=== PATIENT | female | born 1990 | race Two or more races ===

== ENCOUNTER 2017-12-23 12:29 | Outpatient (CLI) | payer OTHER | END 2017-12-23 12:34 | disposition home or self-care (01) | LOC: SONOGRAMA 12:29 | DX: O00.101 Right tubal pregnancy without intrauterine pregnancy (principal) ==

== ENCOUNTER 2018-08-08 14:25 | Inpatient (IN) | payer OTHER ==
[~2018-08-08] VITALS: Ht 160 cm; Wt 72.6 kg
[2018-08-18] MEDS ORDERED: PRENATAL VITAM1 EAC2 (07:18)
== END 2018-08-21 13:18 | disposition home or self-care (01) | DRG 788 ==
LOC: OB/GYN 08-18 07:00 → O/R 08-18 07:24 → OB/GYN 08-18 14:15
PROVIDERS: ADMIT Specialist
PROC: 4A1HXCZ Monitoring of Products of Conception, Cardiac Rate, External Approach (ICD-10-PCS; 2018-08-18)
PROC: 4A033R1 Measurement of Arterial Saturation, Peripheral, Percutaneous Approach (ICD-10-PCS; 2018-08-18)
PROC: 10D00Z1 Extraction of Products of Conception, Low, Open Approach (ICD-10-PCS; principal; 2018-08-18 07:00)
DX: O34.211 Maternal care for low transverse scar from previous cesarean delivery (principal); O75.82 Onset (spontaneous) of labor after 37 completed weeks of gestation but before 39 completed weeks gestation, with delivery by (planned) cesarean section; Z3A.39 39 weeks gestation of pregnancy; Z37.0 Single live birth